=== PATIENT | male | born 1945 | race African-American/Black ===

== ENCOUNTER 2017-07-22 11:26 | Inpatient (IN) | payer MEDICARE, OTHER ==
[~2017-07-22] VITALS: Ht 185.4 cm; Wt 111.1 kg
[~2017-07-22 11:26] MED LIST: COUMADIN 1MG TAB1 M1 PO; MAXARON FORTE1 EACH PO; METFORMIN HCL500 MG PO; NORVASC5 MG PO; PRAVACHOL20 MG PO; RAPAFLO8 MG PO; SORINE 80 MG TA80 M1 PO; VITAMIN D-32000 UNIT PO; XARELTO20 MG PO; ZANTAC 150MG T150 MG PO
[2017-07-22 11:35] VITALS: BP 160/67
[2017-07-22 11:59] LABS: ABSOLUTE EOSINOPHILS 0.2 thou/uL (0.0-0.7); ABSOLUTE MONOCYTES 0.4 thou/uL (0.0-1.2); ABSOLUTE NEUTROPHILS 2.5 thou/uL (1.6-8.1); BASOPHILS 0.9 %; EOSINOPHILS 3.2 %; HEMATOCRIT 34.2 % (42.0-52.0); HEMOGLOBIN 11.7 gm/dL (14.0-18.0); LYMPHOCYTES 39.4 %; MCH 31.5 pg (26.0-34.0); MCHC 34.1 g/dL (28.0-37.0); MCV 92.5 fL (80.0-100.0); MONOCYTES 7.4 %; MPV 7.6 fl. (7.2-11.1); NUCLEATED RBCS 0 /100WBC; PLATELET COUNT* 181 thou/uL (150-400); POLYS 49.1 %; RDW-CV 14.3 % (10.5-14.5); WBC 5.1 thou/uL (4.0-11.0)
[2017-07-22 12:03] LABS: CREATININE 1.3 mg/dL (0.6-1.3); POTASSIUM 4.1 mmol/L (3.5-5.1)
[2017-07-22 12:08] LABS: ALBUMIN 3.5 g/dL (3.4-5.0); TOTAL BILIRUBIN 0.4 mg/dL (<0.1-1.0); TOTAL PROTEIN 7.1 g/dL (6.4-8.2)
[2017-07-22 12:14] LABS: INR 2.1; PROTIME 20.6 Seconds (9.20-11.50)
[2017-07-22 12:51] LABS: URINE BILIRUBIN NEGATIVE (Negative); URINE BLOOD NEGATIVE (Negative); URINE CLARITY CLEAR; URINE COLOR YELLOW; URINE GLUCOSE-RANDOM NEGATIVE (Negative); URINE KETONES NEGATIVE (Negative); URINE LEUKOCYTES-REFLEX NEGATIVE (Negative); URINE NITRITE-REFLEX NEGATIVE (Negative); URINE PROTEIN NEGATIVE (Negative); URINE SPECIFIC GRAVITY >= 1.030 (1.005-1.030); URINE UROBILINOGEN 0.2 E.U./dl (0.2-1.0)
[2017-07-22 15:16] VITALS: BP 152/81
[2017-07-22 16:00] VITALS: BP 139/99
--- NOTE | 2017-07-22 16:00 | NUR ---
PT UP TO ROOM 317 VIA CART. PT ORIENTED TO ROOM,CALL LIGHT WITHIN REACH
[2017-07-22 16:50] LABS: HEMOGLOBIN 11.3 gm/dL (14.0-18.0)
[2017-07-22 20:00] VITALS: BP 147/71
[2017-07-23 00:11] VITALS: BP 144/74
[2017-07-23 04:40] LABS: CALCIUM 8.8 mg/dL (8.5-10.1); CREATININE 1.2 mg/dL (0.6-1.3); POTASSIUM 4.1 mmol/L (3.5-5.1)
[2017-07-23 04:44] LABS: INR 1.8; PROTIME 17.6 Seconds (9.20-11.50)
[2017-07-23 04:45] LABS: HEMATOCRIT 33.7 % (42.0-52.0); HEMOGLOBIN 11.7 gm/dL (14.0-18.0); MCH 32.1 pg (26.0-34.0); MCHC 34.8 g/dL (28.0-37.0); MCV 92.3 fL (80.0-100.0); MPV 8.6 fl. (7.2-11.1); RBC 3.65 mil/uL (4.50-6.00); RDW-CV 14.2 % (10.5-14.5); WBC 4.5 thou/uL (4.0-11.0)
--- NOTE | 2017-07-23 06:15 | NUR ---
PT SLEPT ON AND OFF OVERNIGHT. DENIES PAIN OR PROBLEMS, STATES HE HAD 2 LOOSE DARK RED STOOLS ON DAYSHIFT, INSTRUCTED TO CALL STAFF TO OBSERVE STOOL IF HE SHOULD HAVE ANYMORE, VERBALIZED UNDERSTANDING. SANJIV RASHID IV. HS ACCUCHECK 166, NO INSULIN GIVEN-,METFORM HELD DT CT SCAN. ABLE TO USE CALL LITE AND MAKE NEEDS KNOWN. AM LABS DRAWN, HGB STEADY AT 11.7.
[2017-07-23 07:30] VITALS: BP 148/80
[2017-07-23] MEDS ORDERED: ASA5UEC PO (10:23)
--- NOTE | 2017-07-23 14:36 | NUR ---
SW met with pt to complete initial assessment, introduce self, and SW role. Pt alert, oriented, pleasant. Pt lives at home with his and granddaughter. Pt did not express any dc needs. Pt said he felt like he needed his "breathing checked" to which SW encouraged pt to speak with doctor and also SW to provide message to pt nurse. SW to continue to follow.
[2017-07-23 15:20] VITALS: BP 126/62
--- NOTE | 2017-07-23 16:52 | NUR ---
PATIENT NPO THIS AM AWAITING GI CONS. PATIENT PUT ON CLEAR LIQUIDS PER GI, TOLERATING WITHOUT DIFFICULTY. PATIENT DENIES BLOODY STOOLS THIS SHIFT. IV SL. RECORDS OBTAINED AND PLACED ON CHART FROM PREVIOUS GI PROCEDURE PER ORDERS. UP AD MACRINA. NO C/O SINUS PRESSURE DAILY WHEN HE WAKES UP, DR. LEWIS NOTIFIED AND PATIENT TO SEE ENT OUTPATIENT, VERBALIZES UNDERSTANDING.
[2017-07-23 21:30] VITALS: BP 116/69
[2017-07-24 04:04] LABS: ABSOLUTE EOSINOPHILS 0.1 thou/uL (0.0-0.7); ABSOLUTE LYMPHOCYTES 1.7 thou/uL (0.8-5.3); ABSOLUTE MONOCYTES 0.4 thou/uL (0.0-1.2); ABSOLUTE NEUTROPHILS 2.2 thou/uL (1.6-8.1); BASOPHILS 0.6 %; EOSINOPHILS 3.2 %; HEMATOCRIT 35.5 % (42.0-52.0); HEMOGLOBIN 12.2 gm/dL (14.0-18.0); LYMPHOCYTES 38.9 %; MCH 31.8 pg (26.0-34.0); MCHC 34.5 g/dL (28.0-37.0); MCV 92.3 fL (80.0-100.0); MONOCYTES 8.1 %; NUCLEATED RBCS 0 /100WBC; PLATELET COUNT* 178 thou/uL (150-400); POLYS 49.2 %; RBC 3.85 mil/uL (4.50-6.00); RDW-CV 14.2 % (10.5-14.5); WBC 4.4 thou/uL (4.0-11.0)
[2017-07-24 04:05] LABS: INR 1.3; PROTIME 12.2 Seconds (9.20-11.50)
[2017-07-24 04:12] LABS: ALBUMIN 3.3 g/dL (3.4-5.0); CALCIUM 9.1 mg/dL (8.5-10.1); CREATININE 1.3 mg/dL (0.6-1.3); POTASSIUM 4.2 mmol/L (3.5-5.1); TOTAL BILIRUBIN 0.4 mg/dL (<0.1-1.0)
--- NOTE | 2017-07-24 05:37 | NUR ---
PT HAS SLEPT WELL WITHOUT COMPLAINTS OF PAIN OR PROBLEMS OVERNIGHT. PT INSTRUCTED TO CALL STAFF TO SEE BM IF HE SHOULD HAVE ANOTHER ONE, NO BM OVERNIGHT. SANJIV RASHID IV. HS ACCUCHECK 146. AM LABS DRAWN, HGB IMPROVED TO 12.2. NO SIGNS OF ACTIVE BLEED OVERNIGHT. VSS. UP AD MACRINA TO BR TO VOID. ABLE TO USE CALL LITE AND MAKE NEEDS KNOWN. POSSIBLE DISCHARGE HOME TODAY.
[2017-07-24 08:15] VITALS: BP 137/66
[2017-07-24] MEDS ORDERED: MIRALAX17 GM PO (11:18)
[2017-07-24 11:56] VITALS: BP 137/66
--- NOTE | 2017-07-24 13:03 | NUR ---
PATIENT DISCHARGED TO HOME AT THIS TIME. PATIENT AMBULATED OUT WITH NURSING STAFF. VERBALIZES UNDERSTANDING OF PAPERWORK AND SCRIPT. PATIENT TO DISCONTINUE COUMADIN AND START ASPIRIN UNTIL SEEN BY OWN GI DOCTOR. IV DC'D. TOLERATING REG DIET.
[2017-07-24 13:09] LABS: TESTOSTERONE 371 ng/dL (264-916)
[2017-07-24 15:12] LABS: GLYCOHEMOGLOBIN (HGB A1C) 7.8 % (4.8-5.6)
--- NOTE | 2017-08-01 15:14 | CON ---
[address] [address] CONSULTATION Name: NILAY MIRELES Matt Room: [address] IN M.R.#: [id number] Admission: 07/22/17 Attend Phys: Jerald Coleman MD Discharge: 07/24/17 Date of : 49 Report #: [id number] THIS REPORT FOR: //name// CC: Dr. Sandip Patel MD DATE OF SERVICE: 07/23/2017 ADDENDUM REFERRING PHYSICIAN: Jerald Coleman MD This is an addendum to job #[id number]. I have seen and examined the patient and agreed with plans that has been outlined by our nurse practitioner, Cristina Mora. Since the patient did have a recent colonoscopy done in the last few months and we were able to review those results, I suspect it is either related to hemorrhoidal problems or to diverticular disease. In any event, we will hold off on any endoscopic studies at this time. Since he is having some issues with chronic fatigue, ____ to check an iron supplement, we will check some additional blood test to evaluate source of his chronic fatigue and mild anemia. We will contact the patient with results once we have these results and make further recommendations at that time. He will likely be able to go home in the next day or two. <ELECTRONICALLY SIGNED> By: Karan Mendoza DO 08/01/17 1514 0853 1446Karan Mendoza DO /pia
--- NOTE | 2017-08-01 15:14 | CON ---
[address] [address] CONSULTATION Name: NILAY MIRELES Room: [address]#: [id number] Admission: 07/22/17 Attend Phys: Jerald Coleman MD Discharge: 07/24/17 Date of : 49 Report #: [id number] THIS REPORT FOR: //name// CC: Jerald Patel MD Hardeep DICTATED BY: Cristina Mora [facility] DATE OF SERVICE: 07/23/2017 Please note at the time of this dictation, the patient was seen and physically examined by myself. REASON FOR CONSULTATION: Abdominal pain and blood in stool. HISTORY OF PRESENT ILLNESS: This is a pleasant 72-year-old male who presented to the Emergency Room, was starting to have this intermittent somewhat pinpoint left lower quadrant discomfort that started on Saturday at which time, then he noticed that he had really bloody stool. It was dark, kind of maroon, but also red in nature and the patient is on warfarin. He did not think much about it. He denied any nausea or vomiting or fever or chills at that time. Then on Saturday, he had another episode of this pain like before. It did not radiate and he did notice a little bit of blood at that time. He states he has a long history of intermittent constipation to diarrhea that he is back and forth. He did have a colonoscopy with [facility] in December of last year for followup regarding polyps and he states that was all normal. We will need to obtain those records for our review. Since he has been here since yesterday, he has had no further bowel movements that have been dark in nature. He said he had one this morning that had returned back to almost its normal color. The patient did receive some vitamin K in the ER for an INR of 2.1 as well. ALLERGIES: PEANUT AND LATEX. MEDICATIONS FROM HOME: Warfarin, Zantac, iron supplement, vitamin D, sotalol, metformin and amlodipine. PAST MEDICAL HISTORY: Hypertension, hyperlipidemia, type 2 diabetes. PAST SURGICAL HISTORY: He had a heart valve repair. FAMILY HISTORY: Negative for any GI [place] [address] CONSULTATION Name: NILAY MIRELES Room: [address]#: [id number] Admission: 07/22/17 Attend Phys: Jerald Coleman MD Discharge: 07/24/17 Date of : 49 Report #: [id number] SOCIAL HISTORY: Denies any alcohol, tobacco or illegal drug use. REVIEW OF SYSTEMS: Twelve-point review of systems is essentially negative except what is mentioned in the HPI. PHYSICAL EXAMINATION: VITAL SIGNS: Temperature 37, pulse 66, respirations 18, blood pressure 148/80. HEART: Regular rate and rhythm. LUNGS: Clear. ABDOMEN: Soft, positive bowel sounds in all 4 quadrants with some very minimal and unreproducible pain on the left side. LABORATORY DATA: Hemoglobin is 11.7, hematocrit 33.7, white count is 4.5, platelets 172. PT is 17.6, INR is 1.8. Sodium 144, potassium 4.1, chloride 108, CO2 30, BUN is 14, creatinine 1.2, GFR 73, glucose is 98. CT of the abdomen and pelvis showed moderate stool noted throughout the colon along with colonic diverticulosis, also noted to have mild circumferential urinary bladder mural thickening as well. IMPRESSION: 1. Hematochezia. 2. Anticoagulant therapy warfarin due to atrial fibrillation. 3. Abdominal pain on the left. 4. A mixture of constipation and diarrhea. PLAN: 1. Obtain records from [facility] for our review with his last colon being in 12/2016. 2. Clear liquid diet. 3. It appears that the patient will need to be on a regular bowel regimen, MiraLax daily and we will start that. 4. Further recommendations to be made once the records have been reviewed. Thank you for allowing us to participate in this patient's care. Please do not hesitate to call with any questions in regard to this consult. ADDENDUM REFERRING PHYSICIAN: Jerald Coleman MD I have seen and examined the patient and agreed with plans that has been outlined by our nurse practitioner, Cristina Mora. Since the patient did have a recent colonoscopy done in the last few months and we were able to review those results, I suspect it is either related to hemorrhoidal problems or to diverticular disease. In any event, we will hold off on any endoscopic studies at this time. Since he is having some issues with chronic fatigue, ____ to [address] [address] CONSULTATION Name: NILAY MIRELES Room: [address] IN M.R.#: [id number] Admission: 07/22/17 Attend Phys: Jerald Coleman MD Discharge: 07/24/17 Date of : 49 Report #: [id number] check an iron supplement, we will check some additional blood test to evaluate source of his chronic fatigue and mild anemia. We will contact the patient with results once we have these results and make further recommendations at that time. He will likely be able to go home in the next day or two. <ELECTRONICALLY SIGNED> By: Karan Mendoza DO 08/01/17 1514 1428 1459Karan Mendoza DO /nt
== END 2017-07-24 13:05 | disposition home or self-care (01) | DRG 813 ==
LOC: M.ERS 11:26 → M.3W 14:15 → M.TBA-ER 14:15 → M.3W 15:40
PROVIDERS: Internal Medicine Gastroenterology; Nurse Practitioner Family; ADMIT Internal Medicine
DX: D68.32 Hemorrhagic disorder due to extrinsic circulating anticoagulants (principal); K57.31 Diverticulosis of large intestine without perforation or abscess with bleeding; D62 Acute posthemorrhagic anemia; I10 Essential (primary) hypertension; I48.91 Unspecified atrial fibrillation; E78.5 Hyperlipidemia, unspecified; E11.9 Type 2 diabetes mellitus without complications; Z79.01 Long term (current) use of anticoagulants; Z79.84 Long term (current) use of oral hypoglycemic drugs; Z79.899 Other long term (current) drug therapy; Z91.040 Latex allergy status; Z91.010 Allergy to peanuts

== ENCOUNTER 2018-05-02 13:25 | Emergency (ER) | payer MEDICARE, OTHER ==
[~2018-05-02] VITALS: Ht 185.4 cm; Wt 110.7 kg
[~2018-05-02 13:25] MED LIST changes: +ASA5UEC PO; +MIRALAX17 GM PO
[2018-05-02] MEDS ORDERED: NORVASC10 MG PO (13:55)
[2018-05-02] MEDS ORDERED: PROSCAR 5MG TABL5 MG PO (13:55)
[2018-05-02] MEDS ORDERED: LANTUS100 UNIT/M SUBQ (13:56)
[2018-05-02] MEDS ORDERED: NITROGLYCERIN0.4 MG SUBLING (13:56)
[2018-05-02] MEDS ORDERED: LOPRESSOR25 PO (13:56)
[2018-05-02] MEDS ORDERED: FLOMAX0.4 MG PO (13:56)
[2018-05-02] MEDS ORDERED: MAXZIDE-25 MG1 EACH PO (13:57)
[2018-05-02] MEDS ORDERED: UROCIT-K10 ME1 PO (13:57)
[2018-05-02] MEDS ORDERED: COUMADIN 5 MG TA5 M1 PO (13:58)
[2018-05-02 14:06] LABS: ABSOLUTE EOSINOPHILS 0.1 thou/uL (0.0-0.7); ABSOLUTE LYMPHOCYTES 1.7 thou/uL (0.8-5.3); ABSOLUTE MONOCYTES 0.3 thou/uL (0.0-1.2); ABSOLUTE NEUTROPHILS 1.9 thou/uL (1.6-8.1); BASOPHILS 0.2 %; EOSINOPHILS 3.4 %; HEMATOCRIT 40.2 % (42.0-52.0); HEMOGLOBIN 13.7 gm/dL (14.0-18.0); LYMPHOCYTES 41.3 %; MCH 31.1 pg (26.0-34.0); MCV 91.4 fL (80.0-100.0); MONOCYTES 8.6 %; MPV 8.2 fl. (7.2-11.1); NUCLEATED RBCS 0 /100WBC; PLATELET COUNT* 196 thou/uL (150-400); POLYS 46.5 %; RBC 4.39 mil/uL (4.50-6.00); RDW-CV 14.3 % (10.5-14.5)
[2018-05-02 14:12] LABS: ANION GAP 10 mmol/L (7-16); BUN 22 mg/dL (7-18); CALCIUM 9.1 mg/dL (8.5-10.1); CHLORIDE 104 mmol/L (98-107); CO2 26 mmol/L (21-32); CREATININE 1.5 mg/dL (0.6-1.3); GLUCOSE 215 mg/dL (70-99); SODIUM 140 mmol/L (136-145)
[2018-05-02 14:19] LABS: ALBUMIN 3.4 g/dL (3.4-5.0); ALKALINE PHOSPHATASE 88 U/L (46-116); SGOT 35 U/L (15-37); SGPT 69 U/L (30-65); TOTAL BILIRUBIN 0.4 mg/dL (<0.1-1.0); TOTAL PROTEIN 7.4 g/dL (6.4-8.2); TROPONIN-I LEVEL <0.06 ng/mL (<0.06)
[2018-05-02 15:38] LABS: INR 1.9; PROTIME 19.3 Seconds (9.20-11.50)
[2018-05-02 15:54] LABS: URINE BILIRUBIN NEGATIVE (Negative); URINE BLOOD NEGATIVE (Negative); URINE CLARITY CLEAR; URINE COLOR YELLOW; URINE GLUCOSE-RANDOM NEGATIVE (Negative); URINE KETONES NEGATIVE (Negative); URINE LEUKOCYTES-REFLEX NEGATIVE (Negative); URINE NITRITE-REFLEX NEGATIVE (Negative); URINE PROTEIN NEGATIVE (Negative); URINE SPECIFIC GRAVITY 1.025 (1.005-1.030); URINE UROBILINOGEN 0.2 E.U./dl (0.2-1.0)
[2018-05-02 16:49] VITALS: BP 117/67
--- NOTE | 2018-05-02 18:18 | EKG ---
[place] [address] ELECTROCARDIOGRAM REPORT Name: NILAY MIRELES Room: [facility]#: [id number] Admission: 05/02/18 Attend Phys: Discharge: 05/02/18 Date of : 49 Report #: [id number] THIS REPORT FOR: //name// [facility] ED Test Date: 2018-05-02 Test Time: 13:32:58 Pat Name: NILAY MIRELES Department: Room: Gender: Online Communications Specialist: Juan COLES : 1945 Requested By: Mirna Baker Order Number: [id number] MD: Marcus Morales Measurements Intervals [place] Rate: 131 P: [place]: QRS: 28 QRSD: 97 T: 14 QT: 309 QTc: 457 Interpretive Statements Junctional tachycardia Baseline wander in lead(s) II,V1,V2,V3,V4,V5 Compared to ECG 12/02/2014 06:26:58 Junctional tachycardia now present Sinus rhythm no longer present Electronically Signed On 05-02-2018 18:18:01 [employer]ARDING ROOM by Marcus Morales [email or web address] <ELECTRONICALLY SIGNED> By: Marcus Morales MD, [facility] 05/02/18 1818 1332 1332 Marcus Morales MD, [facility] /EPI
--- NOTE | 2018-05-03 11:50 | EKG ---
[place] [address] ELECTROCARDIOGRAM REPORT Name: NILAY MIRELES [id number] Admission: 05/02/18 Attend Phys: Discharge: 05/02/18 Date of : 49 Report #: [id number] THIS REPORT FOR: //name// [facility] ED Test Date: 2018-05-02 Test Time: 14:32:06 Pat Name: NILAY MIRELES Department: Room: Gender: Collect On Delivery Clerk: Juan COLES : 1945 Requested By: Vish Lea Order Number: [id number] MD: Jason Oakes Measurements Intervals [place] Rate: 101 P: [place]: QRS: 1 QRSD: 87 T: -16 QT: 323 QTc: 419 Interpretive Statements sinus tachycardia Nonspecific T abnormalities, inferior leads Compared to ECG 05/02/2018 13:32:58 rate slowed Electronically Signed On 05-03-2018 11:50:06 PROPERTY CLAIMS ADJUSTER by Jason Oakes [email or web address] <ELECTRONICALLY SIGNED> By: Jason Oakes MD, [facility] 05/03/18 1150 1432 1432 Jason Oakes MD, [facility]ACC /EPI
--- NOTE | 2018-05-03 11:51 | EKG ---
[place] [address] ELECTROCARDIOGRAM REPORT Name: NILAY MIRELES [id number] Admission: 05/02/18 Attend Phys: Discharge: 05/02/18 Date of : 49 Report #: [id number] THIS REPORT FOR: //name// [facility] ED Test Date: 2018-05-02 Test Time: 15:49:22 Pat Name: NILAY MIRELES Department: Room: Gender: Patient Centered Care Specialist: Juan COLES : 1945 Requested By: Vish Lea Order Number: [id number] MD: Jason Oakes Measurements Intervals [place] Rate: 67 P: 56 IN: 179 QRS: -4 QRSD: 91 T: 20 QT: 368 QTc: 389 Interpretive Statements Sinus rhythm Electronically Signed On 05-03-2018 11:51:10 [employer] by Jason Oakes [email or web address] <ELECTRONICALLY SIGNED> By: Jason Oakes MD, [facility] 05/03/18 1151 1549 1549 Jason Oakes MD, FACC /EPI
== END 2018-05-02 16:50 | disposition home or self-care (01) ==
LOC: M.ERS 13:25
PROVIDERS: Emergency Medicine Emergency Medical Services; Nurse Practitioner Family
DX: R00.0 Tachycardia, unspecified (principal); I10 Essential (primary) hypertension; E78.5 Hyperlipidemia, unspecified; E11.9 Type 2 diabetes mellitus without complications; I48.91 Unspecified atrial fibrillation; Z79.4 Long term (current) use of insulin; Z91.040 Latex allergy status; Z91.010 Allergy to peanuts